=== PATIENT | female | born 1995 | race Caucasian/White ===

== ENCOUNTER 2017-04-17 18:44 | Emergency (ER) | payer MEDICAID, OTHER ==
[~2017-04-17] VITALS: Ht 160 cm; Wt 117.5 kg
[~2017-04-17 18:44] MED LIST: ALBU8.5H3 INH; NAPR-260 PO
[2017-04-17 19:00] VITALS: Ht 160 cm; Wt 117.5 kg
--- NOTE | 2017-04-17 21:50 | RADRPT ---
PROCEDURE: US OB. CLINICAL INDICATION: pelvic pain TECHNIQUE: Transabdominal views of the pelvis are available for review. COMPARISON: No prior studies are available for comparison. FINDINGS: There is a single intrauterine gestation with the crown-rump length measuring 5.6 cm, corresponding to a gestational age of 12 weeks and 1 day. The heart rate is noted at 159 bpm. The ovaries are not visualized. The NILES MVP measures 3.3 cm. There is no free fluid. RPTAT: AA IMPRESSION: Single live intrauterine with an estimated gestational age of 12 weeks and 1 day, based on ultrasound measurements. KARIN based on ultrasound measurements is 10/29/17. .Ian Ann MD, MD Date Time Electronically viewed and signed by .Ian Ann MD, MD on 04/17/2017 21:50 .S/
[2017-04-17] MEDS ORDERED: ACET500C5 PO (22:20)
[2017-04-17 22:50] VITALS: BP 137/78; PULSE 70; RESP 16; TEMP 97.6
--- NOTE | 2017-04-17 23:21 | ERD ---
ER Documentation Chief Complaint Date/Time DATE: 04/17/17 TIME: 23:13 Chief Complaint 12 weeks pelvic pain on and off x 3 weeks, denies vag bleeding HPI 22-year-old female who is approximately 12 weeks is complaining of pelvic pain on and off for last 3 weeks. Pain is sharp, jabbing like, lasting about 1 minutes each. Patient states that her OB clinic had ordered a nuchal translucency ultrasound, she would like to get it done here. Patient is SAB 1, LMP 01/23/2017. Patient denies any pelvic pain at this time. Denies dysuria. Denies fever or chills. Denies vaginal bleeding. ROS All systems reviewed and are negative except as per history of present illness. Medications Home Meds Active Scripts Acetaminophen* (Tylophen*) 500 Mg Capsule, 1 CAP PO Q6H Y for PAIN AND OR ELEVATED TEMP, #20 CAP Prov:JULIA ANDERSEN. SKI MOLDER 04/17/17 Albuterol Sulfate* (Proair HFA*) 8.5 Gm Hfa.aer.ad, 2 PUFF INH Q4, #1 INHALER Prov:PARK COTTER PA-C 03/10/16 Naproxen* (Naprosyn*) 500 Mg Tablet, 500 MG PO BID Y for PAIN AND/OR INFLAMMATION, #30 TAB Prov:PARK COTTER PA-C 03/10/16 Allergies Allergies: Coded Allergies: No Known Allergies (Verified Allergy, Mild, 02/20/16) PMhx/Soc History of Surgery: Yes (TONSILLECTOMY AGE 8 Y.O. NASAL SURGEY FOR FREQUENT NOSE BLEEDING AGE 9 Y O) Anesthesia Reaction: No Hx Neurological Disorder: No Hx Respiratory Disorders: No Hx Cardiac Disorders: No Hx Miscellaneous Medical Probl: Yes ( 01/2016) Hx Alcohol Use: No Hx Substance Use: No Hx Tobacco Use: No Smoking Status: Never smoker Physical Exam Vitals Vital Signs Date Time Temp Pulse Resp B/P Pulse Ox O2 Delivery O2 Flow Rate FiO2 04/17/17 22:50 97.6 70 16 137/78 99 Room Air 04/17/17 19:00 98.3 68 20 156/77 100 Physical Exam General: Well-developed, well-nourished, conscious and coherent, in no distress Skin: Warm and dry without rash, good texture and turgor Head: Normocephalic without evidence of trauma Eyes: Sclera and conjunctivae normal; pupils equal, round, and reactive to light; extraocular movements are intact Ears: Canals are patent. Tympanic membranes are clear Chest: Normal AP diameter. Good expansion without retractions. Nontender. Lungs are clear to auscultate bilaterally with good tidal volume Heart: Regular rate and rhythm. No murmur, rub, or gallops heard Abdomen: Soft and nontender without masses, guarding, or rebound. Bowel sounds are active. No hepatosplenomegaly Pelvis: Nontender to palpation and stable to compression Extremities: Full range of motion. Good strength bilaterally. No clubbing, cyanosis, or edema. Peripheral pulses are intact. Sensation intact Neuro: Alert and oriented 4, GCS 15. Cranial nerves grossly intact. Motor and sensory exams nonfocal. Moves all extremities. Speech clear. Gait normal Results 24 hrs PROCEDURE: US OB. CLINICAL INDICATION: pelvic pain TECHNIQUE: Transabdominal views of the pelvis are available for review. COMPARISON: No prior studies are available for comparison. FINDINGS: There is a single intrauterine gestation with the crown-rump length measuring 5.6 cm, corresponding to a gestational age of 12 weeks and 1 day. The heart rate is noted at 159 bpm. The ovaries are not visualized. The NILES MVP measures 3.3 cm. There is no free fluid. RPTAT: AA IMPRESSION: Single live intrauterine with an estimated gestational age of 12 weeks and 1 day, based on ultrasound measurements. KARIN based on ultrasound measurements is 10/29/17. .Ian Ann MD, Date Time Electronically viewed and signed by .Ian Ann MD, on 04/17/2017 21: 50 .S/ CC: JULIA ANDERSEN SKI MOLDER Procedures/MDM Well-appearing 22-year-old female who is approximately 12 weeks is present ED with intermittent pelvic pain. Likely her pain is due to round ligament pain. Patient has a order from her OB clinic for nuchal translucency ultrasound. I informed patient that we do not perform this ultrasound here in the ED. She will need to call the clinic who ordered ultrasound to find out where she can go to get it done. OB ultrasound was performed, which showed single live intrauterine with an estimated gestational age of 12 weeks and 1 day. Low suspicion for threatened . Patient appears well, stable for discharge and outpatient management. Medical decision making shared with patient and family. Education provided to patient and family. Patient and family expressed understanding of the plan. Medications on discharge: Tylenol. Follow-up: Primary care provider in 2-3 days or return to ED if worse. Departure Diagnosis: Primary Impression: Pelvic pain complicating Condition: Good Patient Instructions: Pelvic Pain In : Unclear (2-3 Trimester) Referrals: DENISE FISCHER (PCP) INSTRUMENT/CONTROL TECHNICIAN [place] [address] [facility] [address] [place] [address]LEME YAN [address] [place] [address] [address] [address] [place] [address] [address] [facility] [address] [facility] [address] [address] [address] [place] [address] [facility] [address] [place] [address] [facility] [address] - ELVIA KEITH [address], [facility] [address] [address], [place] [address] [facility]. [address], [facility] [address] [address] [address] [place] [address] Additional Instructions: Call your primary care doctor TOMORROW for an appointment during the next 2-3 days.See the doctor sooner or return here if your condition worsens before your appointment time. JULIA ANDERSEN NP April 17, 2017 23:21
== END 2017-04-17 22:51 | disposition home or self-care (01) ==
LOC: FTE 18:44
DX: O26.891 Other specified pregnancy related conditions, first trimester (principal); R10.2 Pelvic and perineal pain; R40.2412 Glasgow coma scale score 13-15, at arrival to emergency department; Z3A.12 12 weeks gestation of pregnancy
CPT/HCPCS: 76805

== ENCOUNTER 2019-03-13 14:08 | Emergency (ER) | payer BC, OTHER ==
[~2019-03-13] VITALS: Wt 104.1 kg
[~2019-03-13 14:08] MED LIST changes: +ACET500C5 PO; -ALBU8.5H3 INH; +ALBU8.5H8 INH; -NAPR-260 PO; +NAPR-985 PO
[2019-03-13] MEDS ORDERED: METOCLOPRAMIDE 10 MG INJ IV STA (16:06)
[2019-03-13] MEDS ORDERED: FAMOTIDINE 20 MG INJ IV STA (16:06)
--- NOTE | 2019-03-13 16:14 | ERD ---
ER Documentation Chief Complaint Chief Complaint ABD PAIN X 3-4 DAYS HPI This is a 24-year-old female patient who presents to the emergency room with complaint of "stomach sensitivity" times 2 weeks. +gas, +nausea, +LLQ pain, +periumbilical pain, +bloating, no bleching, no acid reflux, +diarrhea after use of gasx. +pink stool. History of GERD, smokes marijuana to help with her pain, took Zantac today, LMP 2 weeks ago. ROS All systems reviewed and are negative except as per history of present illness. Medications Home Meds Active Scripts Metoclopramide* (Reglan*) 10 Mg Tablet, 10 MG PO Q6 PRN for NAUSEA AND/OR VOMITING for 7 Days, #28 TAB Prov:IQRA BARAHONA FOREIGN TRADE TEACHER 03/13/19 Acetaminophen* (Tylophen*) 500 Mg Capsule, 1 CAP PO Q6H PRN for PAIN AND OR ELEVATED TEMP, #20 CAP Prov:JULIA ANDERSEN FOREIGN TRADE TEACHER 04/17/17 Albuterol Sulfate* (Proair HFA*) 8.5 Gm Hfa.aer.ad, 2 PUFF INH Q4, #1 INHALER Prov:PARK COTTER PA-C 03/10/16 Naproxen* (Naprosyn*) 500 Mg Tablet, 500 MG PO BID PRN for PAIN AND/OR INFLAMMATION, #30 TAB Prov:PARK COTTER PA-C 03/10/16 Allergies Allergies: Coded Allergies: No Known Allergies (Verified Allergy, Mild, 02/20/16) PMhx/Soc History of Surgery: Yes (TONSILLECTOMY AGE 8 Y.O. NASAL SURGEY FOR FREQUENT NOSE BLEEDING AGE 9 Y O) Anesthesia Reaction: No Hx Neurological Disorder: No Hx Respiratory Disorders: No Hx Cardiac Disorders: No Hx Miscellaneous Medical Probl: Yes ( 01/2016) Hx Alcohol Use: No Hx Substance Use: No Hx Tobacco Use: No Smoking Status: Never smoker FmHx Family History: No diabetes, No coronary disease, No other Physical Exam Vitals Vital Signs Date Temp Pulse Resp B/P (MAP) Pulse Ox O2 O2 Flow FiO2 Time Delivery Rate 03/13/19 80 18 134/78 99 19:56 (96) 03/13/19 97.3 90 18 147/86 99 14:13 (106) Physical Exam Const: No acute distress Head: Atraumatic Eyes: Normal Conjunctiva, PERRL ENT: Normal External Ears, Nose and Mouth. Neck: Full range of motion. No meningismus. Resp: Clear to auscultation bilaterally Cardio: Regular rate and rhythm, no murmurs Abd: Soft, +obese abd, tender @ LLQ, non distended. hypoactive bowel sounds Skin: No petechiae or rashes Ext: No cyanosis, or edema Neur: Awake and alert Psych: Normal Mood and Affect Result Diagram: 03/13/19 1635 03/13/19 1635 Results 24 hrs Laboratory Tests Test 03/13/19 16:26 03/13/19 16:29 03/13/19 16:30 03/13/19 16:35 POC Beta HCG, NEGATIVE Qualitative Urine Color YELLOW Urine Clarity TURBID Urine pH 5.0 Urine Specific 1.028 [place] Urine Ketones NEGATIVE mg/dL Urine Nitrite NEGATIVE mg/dL Urine Bilirubin NEGATIVE mg/dL Urine NEGATIVE mg/dL Urobilinogen Urine Leukocyte NEGATIVE Nohemi/ul Esterase Urine Microscopic 3 /HPF RBC Urine Microscopic 8 /HPF WBC Urine Squamous MODERATE /HPF Epithelial Cells Urine Mucus MODERATE /HPF Urine Hemoglobin NEGATIVE mg/dL Urine Glucose NEGATIVE mg/dL Urine Total NEGATIVE mg/dl Protein Bedside Urine pH 5.5 (LAB) Bedside Urine Trace Protein (LAB) Bedside Urine Negative Glucose (UA) Bedside Urine Negative Ketones (LAB) Bedside Urine Trace-intact Blood Bedside Urine Negative Nitrite (LAB) Bedside Urine Negative Leukocyte Esteras e (L White Blood Count 6.6 10^3/ul Red Blood Count 5.17 10^6/ul Hemoglobin 14.7 g/dl Hematocrit 43.5 % Mean Corpuscular 84.1 fl Volume Mean Corpuscular 28.4 pg Hemoglobin Mean Corpuscular 33.8 g/dl Hemoglobin Concen t Red Cell 12.9 % Distribution Width Platelet Count 246 10^3/UL Mean Platelet 8.9 fl Volume Immature 0.300 % Granulocytes % Neutrophils % 71.8 % Lymphocytes % 15.9 % Monocytes % 10.8 % Eosinophils % 0.6 % Basophils % 0.6 % Nucleated Red 0.0 /100WBC Blood Cells % Immature 0.020 10^3/ul Granulocytes # Neutrophils # 4.7 10^3/ul Lymphocytes # 1.1 10^3/ul Monocytes # 0.7 10^3/ul Eosinophils # 0.0 10^3/ul Basophils # 0.0 10^3/ul Nucleated Red 0.0 10^3/ul Blood Cells # Sodium Level 139 mmol/L Potassium Level 4.0 mmol/L Chloride Level 102 mmol/L Carbon Dioxide 25 mmol/L Level Anion Gap 12 Blood Urea 12 mg/dl Nitrogen Creatinine 0.66 mg/dl Est Glomerular > 60 mL/min Filtrat Rate mL/min Glucose Level 93 mg/dl Calcium Level 9.2 mg/dl Total Bilirubin 0.4 mg/dl Direct Bilirubin 0.00 mg/dl Indirect 0.4 mg/dl Bilirubin Aspartate Amino 19 IU/L Transf (AST/SGOT) Alanine 16 IU/L Aminotransferase (ALT/SGPT) Alkaline 72 IU/L Phosphatase Total Protein 7.6 g/dl Albumin 4.1 g/dl Globulin 3.50 g/dl Albumin/Globulin 1.17 Ratio Lipase 66 U/L Current Medications Medications Dose Sig/Umm Start Time Status Last (Trade) Ordered Route PRN Stop Time Admin Dose Reason Admin 10 mg ONCE STAT 03/13/19 DC 03/13/19 Metoclopramid IV 16:06 16:43 e HCl 03/13/19 16:08 (Reglan) Famotidine 20 mg ONCE STAT 03/13/19 DC 03/13/19 (Pepcid Iv) IV 16:06 16:44 03/13/19 16:08 IV Flush 10 ml STK-MED 03/13/19 DC 03/13/19 (NS 10 ml) ONCE .ROUTE 17:32 18:08 03/13/19 17:33 Sodium 100 ml @ ud STK-MED 03/13/19 DC 03/13/19 Chloride ONCE .ROUTE 17:32 18:08 03/13/19 17:33 Iohexol 150 ml STK-MED 03/13/19 DC 03/13/19 (Omnipaque ONCE .ROUTE 17:32 18:10 300mg/ ml) 03/13/19 17:33 Procedures/MDM This is a 24-year-old female patient who presents to the emergency room complaining of abdominal pain times 2 weeks. ED COURSE: The patient was stable throughout ED course. I kept the patient informed of laboratory and diagnostic imaging results throughout the ED course. DIAGNOSTIC IMAGING: Few short segment areas of colonic wall thickening with subtle surrounding fat stranding as well as involvement of the terminal ileum. These constellation of findings are concerning for inflammatory bowel disease Read by radiologist. PROCEDURES: None. MEDICATIONS GIVEN: Normal saline, Pepcid, Reglan Patient tolerated medication well with no adverse reactions. Patient reported improvement in pain. MDM: Reevaluation of patient shows improvement in pain and nausea. Patient states that Reglan was helpful for her and requesting Reglan prescription for home. Discussed CAT scan results with patient and need for follow-up with primary care provider and possible referral to furniture painter. Patient provided with instructions on diet and education for IBS. The patient presents with abdominal pain without definite explanation found on evaluation today. However, there are no signs of peritonitis or other life- threatening or serious etiology. The patient appears stable for discharge and has been instructed to return immediately if the symptoms worsen in any way, or in 8-12 hours if not improved for re-evaluation. The patient has been instructed to return if the symptoms worsen or change in any way. DISPOSITION: The patient has been discharge home to follow-up with community physician. Departure Diagnosis: Primary Impression: Abdominal pain Condition: Stable Referrals: COMM[facility]ICS Additional Instructions: Thank you very much for allowing us to participate in your care. Your health and safety is our top priority at [facility]. Call your primary care doctor TOMORROW for an appointment during the next 2-4 days and bring all the information and medications prescribed. Have prescriptions filled and follow precisely the directions on the label. If the symptoms get worse and your provider is unavailable, return to the Emergency Department immediately. IQRA BARAHONA NP Mar 13, 2019 16:14
[2019-03-13] MEDS ORDERED: SOD CHLORIDE 0.9% 100 ML ONE (17:32)
[2019-03-13] MEDS ORDERED: IOHEXOL 300MG/ML 150 ML BTL ONE (17:32)
[2019-03-13] MEDS ORDERED: METO10TA92 PO (18:33)
[2019-03-13 19:56] VITALS: BP 134/78; PULSE 80; RESP 18
== END 2019-03-13 19:56 | disposition home or self-care (01) ==
LOC: FTE 14:08
DX: R10.32 Left lower quadrant pain (principal)
CPT/HCPCS: 36415; 74177; 80053; 81001; 81025; 83690; 85025; 96374; 96375; 99285; J2765; Q9967; Z7610; 81003